=== PATIENT | female | born 1995 | race Caucasian/White ===

== ENCOUNTER 2021-11-19 16:33 | Emergency (ER) | payer BC, SELFPAY ==
[2021-11-19 16:45] VITALS: BP 131/85; PULSE 104; RESP 18; TEMP 37.1; O2SAT 100
--- NOTE | 2021-11-19 17:12 | ED.SKABFB ---
HPI - Skin/Abscess/Foreign Bdy General Chief complaint: Skin/Abscess/Foreign Body Stated complaint: Rash Time Seen by Provider: 11/19/21 17:12 Source: patient Mode of arrival: ambulatory Limitations: no limitations History of Present Illness HPI narrative: 26 y/o female presented for c/o rash for 2 weeks. States it continues to spread from right arm to left arm, right thigh and left foot. At onset the lesions oozed clear fluid. Endorses itching, denies pain. Used calamine for symptoms. denies change soap, detergent, lotion etc., denies exposure to poison genaro. Denies lip, tongue, throat swelling or itching, shortness of breath or wheezing. Review of Systems Review of Systems: CONSTITUTIONAL: Denies body aches, fever, chills, or sweats. EYES: Denies visual changes, redness, or discharge. ENT: Denies rhinorrhea, congestion CARDIOVASCULAR: Denies chest pain, palpitations, or edema. RESPIRATORY: Denies cough or dyspnea. GASTROINTESTINAL: Denies abdominal pain, nausea, vomiting, or diarrhea. SKIN: reports rash MUSCULOSKELETAL: Denies back pain, joint pain, or myalgia. NEUROLOGIC: Denies headache, numbness, tingling, or weakness. PMFSH Comments At time of signature, I have reviewed and agree with nursing past medical, surgical, social and family history unless otherwise noted. Please see nursing chart for further information. There is no relevant family history pertinent to the presenting complaint Exam Narrative: GENERAL: Well-appearing HEAD: Normocephalic, atraumatic. EYES: conjunctivae clear, and EOMI. ENT: Mucous membranes moist. Oropharynx without edema, erythema or lesions. NECK: Supple. No lymphadenopathy CHEST: Clear to auscultation. HEART: Regular rate and rhythm. SKIN: Warm, dry. Scattered patches of red scaly/dry lesions to bilateral arms, right AC with approx 3cm diameter lesion, right thigh with scattered lesions approx 3cm diameter c/w contact dermatitis, no active drainage or surrounding induration NEURO: Alert and oriented x3. Course Course Emergency Course: Patient is aware of diagnosis, understands and agrees to treatment plan. Anticipatory guidance given. Patient agrees to follow-up as directed and is aware of reasons to seek care at the emergency department. Portions of this record may have been created with voice recognition software Level of Care: Express Care Visit Vital Signs Vital signs: Vital Signs Temperature 98.8 F 11/19/21 16:45 Pulse Rate 104 H 11/19/21 16:45 Respiratory Rate 18 11/19/21 16:45 Blood Pressure 131/85 11/19/21 16:45 Pulse Oximetry 100 11/19/21 16:45 Oxygen Delivery Room Air 11/19/21 16:45 Temperature 98.8 F 11/19/21 16:45 Pulse Rate 104 H 11/19/21 16:45 Respiratory Rate 18 11/19/21 16:45 Blood Pressure 131/85 11/19/21 16:45 Pulse Oximetry 100 11/19/21 16:45 Oxygen Delivery Room Air 11/19/21 16:45 Reviewed MDM - Skin/Abscess/Foreign Bdy MDM Narrative Medical decision making narrative: Advised supportive measures and signs/symptoms to go to the ER. Pt is appropriate for outpt treatment and f/u. Instructed patient to go to nearest ER immediately for any worsening symptoms including but not limited to: fever, spreading rash, pain, sore throat, headache, dizziness, chest pain, trouble breathing, or any symptoms concerning to the patient. Differential Diagnosis Differential diagnosis: Likely abscess of skin or subcutaneous tissue, urticaria, herpes zoster, cellulitis and contact dermatitis Discharge Plan Discharge Clinical Impression: Contact dermatitis Patient Disposition: Home, Self-Care Condition: Stable Instructions: Antibiotic Form, Dermatitis (ED) Additional Instructions: Take the steroid as directed, start tomorrow Take Benadryl every 6-8 hours as needed for itching. Use Benadryl as directed Cool compresses to the sites of itching, avoid hot water/showers etc Avoid scratching to prevent skin infections. Fo
== END 2021-11-19 17:28 | disposition home or self-care (01) ==
PROVIDERS: Emergency Provider Nurse Practitioner Family
DX: L25.9 Unspecified contact dermatitis, unspecified cause (principal)
CPT/HCPCS: 99213; G0463